=== PATIENT | female | born 1975 | race Caucasian/White ===

== ENCOUNTER 2021-08-11 17:41 | Emergency (ER) | payer SELFPAY ==
[2021-08-11] MEDS ORDERED: diphenhydrAMINE 25 MG CAP ONE (18:07)
[2021-08-11] MEDS ORDERED: Famotidine 20 MG TAB ONE (18:07)
[2021-08-11] MEDS ORDERED: Dexamethasone 10 MG/ML VIAL ONE (18:07)
== END 2021-08-11 18:27 | disposition home or self-care (01) ==
LOC: MADERS 17:41
DX: L23.7 Allergic contact dermatitis due to plants, except food (principal); F17.210 Nicotine dependence, cigarettes, uncomplicated
CPT/HCPCS: 96372; 99284; J1100